=== PATIENT | female | born 1985 | race Caucasian/White ===

== ENCOUNTER 2022-01-05 18:24 | Emergency (ER) | payer OTHER ==
[~2022-01-05] VITALS: Ht 152.4 cm; Wt 61.4 kg
[2022-01-05] MEDS ORDERED: SUMA25TA9 PO (18:40)
[2022-01-05] MEDS ORDERED: KETOROLAC TROMETHAMINE 60 MG/2 ML VIAL IM ONE (20:45)
[2022-01-05 21:10] VITALS: BP 138/79
== END 2022-01-05 21:14 | disposition home or self-care (01) ==
LOC: EMS 18:29
DX: G43.909 Migraine, unspecified, not intractable, without status migrainosus (principal); F32.A Depression, unspecified
CPT/HCPCS: 96372; 99283; J1885